=== PATIENT | male | born 1980 | race Two or more races ===

== ENCOUNTER 2022-11-12 13:42 | Emergency (ER) | payer MEDICAID, OTHER ==
[~2022-11-12] VITALS: Ht 182.9 cm; Wt 104.0 kg
[2022-11-12] MEDS ORDERED: LIDOCAINE 1% HCL (LOCAL ANESTH.) INJ 20ML MDV ID ONE (16:30)
[2022-11-12 16:40] VITALS: BP 111/76
[2022-11-12] MEDS ORDERED: TETANUS-DIPTH-ACEL PERTUSSIS 0.5ML SYR Tdap IM ONE (17:00)
[2022-11-12] MEDS ORDERED: IBUP-1455 PO (17:13)
[2022-11-12] MEDS ORDERED: CEPH250C PO (17:13)
== END 2022-11-12 17:49 | disposition home or self-care (01) ==
LOC: ER 13:42
DX: S81.812A Laceration without foreign body, left lower leg, initial encounter (principal); Z88.0 Allergy status to penicillin; Z88.8 Allergy status to other drugs, medicaments and biological substances; W25.XXXA Contact with sharp glass, initial encounter; Y93.E9 Activity, other interior property and clothing maintenance; Y92.89 Other specified places as the place of occurrence of the external cause; Y99.8 Other external cause status
CPT/HCPCS: 12002; 90471; 90715; 99283; J2001

== ENCOUNTER 2022-11-26 16:19 | Emergency (ER) | payer MEDICAID ==
[~2022-11-26] VITALS: Ht 182.9 cm; Wt 102.6 kg
[~2022-11-26 16:19] MED LIST: CEPH250C PO; IBUP-1455 PO
[2022-11-26 16:31] VITALS: BP 131/75
== END 2022-11-26 17:07 ==
LOC: ER 16:19
DX: S81.012D Laceration without foreign body, left knee, subsequent encounter (principal); Z88.8 Allergy status to other drugs, medicaments and biological substances; Z88.0 Allergy status to penicillin; X58.XXXD Exposure to other specified factors, subsequent encounter